=== PATIENT | male | born 1985 | race African-American/Black ===

== ENCOUNTER 2017-02-05 03:32 | Emergency (ER) | payer SELFPAY ==
[~2017-02-05] VITALS: Ht 170.2 cm; Wt 65.0 kg
[~2017-02-05 03:32] MED LIST: DIVA500T4 PO; METO25TA91 PO; QUET400T4 PO
[2017-02-05 04:08] LABS: DAU SCREEN DISCLAIMER
[2017-02-05 04:16] LABS: PATH.CAST-FLAG NOT PRESENT; SPERM-FLAG NOT PRESENT; SRC-FLAG NOT PRESENT; XTAL-FLAG NOT PRESENT; YLC-FLAG NOT PRESENT
[2017-02-05 04:46] LABS: BLOOD UREA NITROGEN 14 mg/dL (7-18)
[2017-02-05 04:49] LABS: ASPARTATE AMINO TRANSFERASE 57 U/L (15-37)
[2017-02-05 04:53] LABS: ACETAMINOPHEN < 2 mcg/mL (10-30)
[2017-02-05 15:18] VITALS: BP 158/113
== END 2017-02-05 15:20 | disposition home or self-care (01) ==
LOC: ED 06:22
DX: Z91.19 Patient's noncompliance with other medical treatment and regimen (principal); F10.151 Alcohol abuse with alcohol-induced psychotic disorder with hallucinations; F10.120 Alcohol abuse with intoxication, uncomplicated; F32.9 Major depressive disorder, single episode, unspecified; I10 Essential (primary) hypertension; Y90.9 Presence of alcohol in blood, level not specified
CPT/HCPCS: 36415; 80053; 80307; 80329; 81001; 85025; 99284; G0480

== ENCOUNTER 2017-04-06 01:23 | Emergency (ER) | payer OTHER ==
[~2017-04-06] VITALS: Ht 175.3 cm; Wt 73.0 kg
[2017-04-06] MEDS ORDERED: LIDOCAINE 1%, 20ML INFIL ONE (02:00)
[2017-04-06] MEDS ORDERED: BACITRACIN ZINC OINT 500U/GM, 0.9 GM ONE (02:56)
[2017-04-06] MEDS ORDERED: LIDOCAINE 1%, 20ML ONE (03:03)
[2017-04-06 03:16] VITALS: BP 175/120
== END 2017-04-06 03:20 | disposition home or self-care (01) ==
LOC: ED 02:30
DX: S02.2XXB Fracture of nasal bones, initial encounter for open fracture (principal); Y04.0XXA Assault by unarmed brawl or fight, initial encounter; Y93.89 Activity, other specified; Y99.8 Other external cause status; Y92.488 Other paved roadways as the place of occurrence of the external cause
CPT/HCPCS: 12011; 70450; 70486

== ENCOUNTER 2017-04-15 12:25 | Emergency (ER) | payer OTHER ==
[~2017-04-15] VITALS: Ht 175.3 cm; Wt 69.1 kg
[2017-04-15 12:29] VITALS: BP 155/102
== END 2017-04-15 13:09 | disposition home or self-care (01) ==
LOC: ED 12:50
DX: S01.21XD Laceration without foreign body of nose, subsequent encounter (principal); I10 Essential (primary) hypertension
CPT/HCPCS: 99281

== ENCOUNTER 2018-06-02 16:39 | Emergency (ER) | payer OTHER ==
[~2018-06-02] VITALS: Ht 175.3 cm; Wt 65.7 kg
[2018-06-02] MEDS ORDERED: HYDROcodone/APAP 5/325 TABLET PO ONE (17:00)
[2018-06-02] MEDS ORDERED: IBUPROFEN 200 MG TABLET ONE (17:43)
[2018-06-02] MEDS ORDERED: IBUPROFEN 200 MG TABLET PO ONE (18:00)
[2018-06-02 18:03] VITALS: BP 144/94
== END 2018-06-02 19:00 | disposition home or self-care (01) ==
LOC: ED 18:57
DX: S29.012A Strain of muscle and tendon of back wall of thorax, initial encounter (principal); F31.9 Bipolar disorder, unspecified; I10 Essential (primary) hypertension; V47.5XXA Car driver injured in collision with fixed or stationary object in traffic accident, initial encounter; Y93.89 Activity, other specified; Y92.89 Other specified places as the place of occurrence of the external cause; Y99.8 Other external cause status
CPT/HCPCS: 71046; 72125; 99284

== ENCOUNTER 2018-07-05 15:19 | Emergency (ER) | payer OTHER ==
[~2018-07-05] VITALS: Ht 172.7 cm; Wt 68.0 kg
[2018-07-05 15:36] VITALS: BP 145/103
[2018-07-05 15:53] LABS: BASOPHILS # (AUTO) 0.03 x10^3/uL (0-0.1); BASOPHILS % (AUTO) 0 % (0-1); EOSINOPHILS # (AUTO) 0.03 x10^3/uL (0-0.4); EOSINOPHILS % (AUTO) 0 % (1-7); LYMPHOCYTES # (AUTO) 2.04 x10^3/uL (1-3.4); LYMPHOCYTES % (AUTO) 28 % (22-44); MD NO; MEAN CORPUSCULAR HEMOGLOBIN 30.6 pg (27.5-34.5); MONOCYTES # (AUTO) 0.25 x10^3/uL (0.2-0.8); MONOCYTES % (AUTO) 4 % (2-9); NEUTROPHILS # (AUTO) 4.85 x10^3/uL (1.8-6.8); NEUTROPHILS % (AUTO) 67 % (42-75); PLATELET COUNT 258 x10^3/uL (130-400); RED BLOOD COUNT 4.81 x10^6/uL (4.38-5.82); RED CELL DISTRIBUTION WIDTH 14.2 % (9.4-14.8)
[2018-07-05 16:04] LABS: CALCIUM 7.3 mg/dL (8.5-10.1); CHLORIDE 108 mmol/L (98-107)
[2018-07-05 16:10] LABS: ALANINE AMINOTRANSFERASE 48 U/L (12-78); ALBUMIN 4.1 g/dL (3.4-5.0); ALKALINE PHOSPHATASE 85 U/L (45-117); ANION GAP 12 mmol/L (5-15); BILIRUBIN,TOTAL 0.4 mg/dL (0.2-1.0); CREATININE 0.76 mg/dL (0.7-1.3); TOTAL PROTEIN 7.9 g/dL (6.4-8.2)
[2018-07-05 16:18] LABS: ACETAMINOPHEN < 2 mcg/mL (10-30); SALICYLATE LEVEL < 1.7 mg/dL (2.8-20.0)
[2018-07-05 16:58] LABS: AMPHETAMINE SCREEN, URINE Negative (Negative); BARBITURATE SCREEN, URINE Negative (Negative); BENZODIAZEPINE SCREEN, URINE Negative (Negative); CANNABINOID SCREEN, URINE Negative (Negative); COCAINE SCREEN, URINE Negative (Negative); METHADONE SCREEN, URINE Negative (Negative); OPIATE SCREEN, URINE Negative (Negative)
== END 2018-07-05 17:23 | disposition home or self-care (01) ==
LOC: ED 16:30
DX: F10.220 Alcohol dependence with intoxication, uncomplicated (principal); F31.9 Bipolar disorder, unspecified; I10 Essential (primary) hypertension; F20.9 Schizophrenia, unspecified
CPT/HCPCS: 36415; 80053; 80307; 80329; 85025; 99284; G0480

== ENCOUNTER 2019-03-12 13:19 | Emergency (ER) | payer SELFPAY ==
[~2019-03-12] VITALS: Ht 175.3 cm; Wt 70.0 kg
--- NOTE | 2019-03-12 13:35 | NUR ---
CALLED FOR PT, PT NOT IN LOBBY.
[2019-03-12] MEDS ORDERED: DIPH,PERTUSS(ACELL),TET VAC/PF 0.5 ML IM-VACC ONE (14:00)
[2019-03-12] MEDS ORDERED: SODIUM CHLORIDE FLUSH 10ML SYR IVF ONE (14:00)
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
[2019-03-12] MEDS ORDERED: QUET200T4 PO (14:13)
[2019-03-12] MEDS ORDERED: DIVA500T2 PO (14:13)
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
[2019-03-12 14:34] LABS: BASOPHILS # (AUTO) 0.02 x10^3/uL (0-0.1); BASOPHILS % (AUTO) 0 % (0-1); EOSINOPHILS # (AUTO) 0.01 x10^3/uL (0-0.4); EOSINOPHILS % (AUTO) 0 % (1-7); LYMPHOCYTES # (AUTO) 1.63 x10^3/uL (1-3.4); LYMPHOCYTES % (AUTO) 18 % (22-44); MD NO; MEAN CORPUSCULAR HEMOGLOBIN 31.6 pg (27.5-34.5); MEAN CORPUSCULAR HGB CONC 33.9 g/dL (33.2-36.2); MEAN CORPUSCULAR VOLUME 93.1 fL (81-97); MEAN PLATELET VOLUME 8.3 fL (7.4-10.4); MONOCYTES # (AUTO) 0.32 x10^3/uL (0.2-0.8); MONOCYTES % (AUTO) 4 % (2-9); NEUTROPHILS # (AUTO) 6.89 x10^3/uL (1.8-6.8); NEUTROPHILS % (AUTO) 78 % (42-75); PLATELET COUNT 261 x10^3/uL (130-400); RED BLOOD COUNT 4.73 x10^6/uL (4.38-5.82); RED CELL DISTRIBUTION WIDTH 13.6 % (9.4-14.8)
[2019-03-12 14:39] LABS: ALBUMIN 4.4 g/dL (3.4-5.0); ANION GAP 7 mmol/L (5-15); CALCIUM 8.9 mg/dL (8.5-10.1); CHLORIDE 112 mmol/L (98-107); CREATININE 1.07 mg/dL (0.7-1.3)
[2019-03-12 14:41] LABS: INTERNATIONAL NORMALIZED RATIO 1.01 (0.93-1.1); PROTHROMBIN TIME 10.6 Seconds (9.6-11.5)
[2019-03-12] MEDS ORDERED: SODIUM CHLORIDE 0.9% 1,000ML IVBOLUS ONE (15:00)
--- NOTE | 2019-03-12 15:22 | NUR ---
Pt back from [place]. [employer] officer at bedside to speak with pt.
[2019-03-12] MEDS ORDERED: LIDOCAINE-MPF 1%, 5ML ONE (15:32)
[2019-03-12] MEDS ORDERED: OMNIPAQUE 350 MG/ML, 150 ML BOTTLE ONE (15:33)
[2019-03-12] MEDS ORDERED: LIDOCAINE 1%-EPI 1:100K, 20ML ONE (15:33)
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
[2019-03-12 16:32] VITALS: BP 161/113
== END 2019-03-12 16:44 | disposition home or self-care (01) ==
LOC: ED 16:35
DX: S71.012A Laceration without foreign body, left hip, initial encounter (principal); X99.1XXA Assault by knife, initial encounter; Y93.89 Activity, other specified; Y92.009 Unspecified place in unspecified non-institutional (private) residence as the place of occurrence of the external cause; Y99.8 Other external cause status
CPT/HCPCS: 12031; 36415; 72191; 73502; 73706; 80048; 82040; 85025; 85610; 85730; 86850; 86900; 90471; 90715; 99284; J7030; Q9967